=== PATIENT | male | born 1990 | race Two or more races ===

== ENCOUNTER 2022-06-30 22:42 | Observation (INO) ==
[2022-06-30] MEDS ORDERED: ONDANSETRON 4 MG/2 ML VIAL IV STA (23:11)
[2022-06-30] MEDS ORDERED: SODIUM CHLORIDE 0.9% 1,000 ML IV STA (23:11)
[2022-06-30 23:35] LABS: Basophils % 0.3 % (0.0-0.8); Eosinophils # 0.1 10*3/uL (0.0-0.87); Eosinophils % 0.6 % (0.00-10.9); Hematocrit 36.8 VOL% (42.0-52.0); Hemoglobin 12.6 GM/DL (14.0-18.0); Immature Granulocytes % 0.4 %; Immature Granulocytes Absolute 0.03 #; Lymphocytes % 49.6 % (21.2-54.2); Mean Corpuscular HGB Conc 34.2 GM/DL (32-36); Mean Corpuscular Volume 81.6 FL (87-102); Mean Platelet Volume 11.2 FL (9.6-12.0); Monocytes # 0.7 10*3/uL (0.11-0.8); Monocytes % 9.3 % (1.7-12.7); Neutrophils % 39.8 % (38.7-73.9); Platelet Count 159 T/CUMM (130-400); Red Blood Count 4.51 MC/CUMM (3.8-5.5); Red Cell Distribution Width 11.9 % (9.3-17.3)
[2022-06-30 23:41] LABS: Glucose,Urine (UA) 500 mg/dL (Negative); Ketones,Urine 15 mg/dL (Negative); Protein,Urine Negative (Negative); RBC,Urine 10 /HPF (0-4); Squamous Epithelial Cell,Urine Occasional /HPF (0-10); Urine Appearance Clear (Clear); Urine Color Yellow (Yellow)
[2022-06-30 23:42] LABS: Bilirubin,Urine Negative (Negative); Blood, Urine Negative (Negative); Nitrite,Urine Negative (Negative); Urine Urobilinogen 0.2 eU/dL (<2.0)
[2022-06-30 23:51] LABS: Albumin 3.5 G/DL (3.4-5.0); Bilirubin,Total 0.5 MG/DL (0.20-1.00); Calcium 9.1 MG/DL (8.5-10.1); Osmolality,Calculated 289.9 MOS/KG (273-304); Potassium 3.9 MMOL/L (3.5-5.1); Total Protein 7.6 G/DL (6.4-8.2)
[2022-07-01] MEDS ORDERED: SODIUM CHLORIDE 0.9% 1,000 ML IV STA
[2022-07-01] MEDS ORDERED: INSULIN REGULAR 100 UNIT/ML IV STA
[2022-07-01 00:03] LABS: Barbiturates Screen,Urine Negative (Negative); Benzodiazepines Screen,Urine Negative (Negative); Cannabinoid Screen,Urine Negative (Negative); Opiate Screen,Urine Negative (Negative); Phencyclidine Screen,Urine Negative (Negative)
[2022-07-01 00:17] LABS: Arterial Base Excess iSTAT 1 MMOL/L (-2.5-2.5); Arterial Bicarbonate iSTAT 25.9 MMOL/L (20-26); Arterial O2 Saturation iSTAT 96 % (95-100); Arterial PCO2 iSTAT 42 MM HG (35-48); Arterial PO2 iSTAT 83 MM HG (80-95); Arterial Total CO2 iSTAT 27 MMO/L (23-27); Arterial pH iSTAT 7.397 (7.35-7.45)
[2022-07-01] MEDS ORDERED: INSULIN REGULAR 100 UNIT/ML SUBCUT STA (00:43)
[2022-07-01] MEDS ORDERED: GLUCAGON 1 MG VIAL IM PRN (01:56)
[2022-07-01] MEDS ORDERED: DEXTROSE 50% 25 GM/50 ML VIAL IV PRN (01:56)
[2022-07-01] MEDS ORDERED: ACETAMINOPHEN 325 MG TABLET PO PRN (01:56)
[2022-07-01] MEDS ORDERED: hydrALAZINE 20 MG/1 ML VIAL IV PRN (01:56)
[2022-07-01] MEDS ORDERED: ONDANSETRON 4 MG/2 ML VIAL IV PRN (01:56)
[2022-07-01] MEDS ORDERED: DEXTROSE 10% 250 ML BAG IV PRN (02:08)
[2022-07-01] MEDS: SODIUM CHLORIDE 0.9% 1,000 ML IV SCH ×2 (04:09→10:14)
[2022-07-01] MEDS: INSULIN LISPRO 100 UNIT/ML SUBCUT SCH ×3 (04:55→10:18)
[2022-07-01 05:26] LABS: Calcium 8.4 MG/DL (8.5-10.1); Potassium 3.2 MMOL/L (3.5-5.1)
[2022-07-01] MEDS ORDERED: POTASSIUM CHLORIDE 20 MEQ TABLET PO ONE (07:15)
[2022-07-01 08:25] VITALS: BP 114/77
[2022-07-01] MEDS ORDERED: PANTOPRAZOLE 40 MG TABLET PO SCH (09:00)
[2022-07-01] MEDS ORDERED: ENOXAPARIN 40 MG/0.4 ML SYRINGE SUBCUT SCH (21:00)
== END 2022-07-01 11:08 | disposition home or self-care (01) ==
LOC: N.EDINP 22:42 → N.ED 22:42 → N.2W 07-01 02:19
PROVIDERS: ADMIT Internal Medicine; ATTEND Internal Medicine